=== PATIENT | female | born 1995 | race Caucasian/White ===

== ENCOUNTER 2017-12-21 05:26 | Emergency (ER) | payer SELFPAY ==
[~2017-12-21] VITALS: Ht 165.1 cm; Wt 69.9 kg
[2017-12-21 05:29] VITALS: BP_SYST 129
[2017-12-21 06:25] VITALS: BP_SYST 120
== END 2017-12-21 06:25 | disposition home or self-care (01) ==
LOC: SED 05:26
DX: M43.6 Torticollis (principal)
CPT/HCPCS: 99283